=== PATIENT | female | born 1955 | race Hispanic/Latino ===

== ENCOUNTER 2024-11-19 14:59 | Outpatient (CLI) | payer OTHER, SELFPAY ==
--- NOTE | ~2024-11-19 | MM_ITS ---
EXAMINATION: MM screening elvira BI w gerry HISTORY: Screening TECHNIQUE: Craniocaudal and mediolateral oblique 3-D tomosynthesis images were obtained and synthetic 2-D images were generated. CAD analysis was submitted and interpreted. COMPARISON: No prior mammogram is available for comparison at this institution. BREAST PARENCHYMAL COMPOSITION: There are scattered areas of fibroglandular density. FINDINGS: There is no evidence of suspicious mass, calcification, or architectural distortion to suggest malignancy. There has been no suspicious interval change. IMPRESSION: 1. No mammographic evidence of malignancy. Recommend routine screening mammography in one year. BI-RADS Category 2: Benign finding(s) Reviewed, dictated and finalized at location [facility]. IMPRESSION: 1. No mammographic evidence of malignancy. Recommend routine screening mammogra phy in one year. BI-RADS Category 2: Benign finding(s)
== END 2024-11-19 15:00 | disposition home or self-care (01) ==
PROVIDERS: PCP Physician Assistant; Visit Provider Physician Assistant
DX: Z12.31 Encounter for screening mammogram for malignant neoplasm of breast (principal)
CPT/HCPCS: 77063; 77067

== ENCOUNTER 2024-12-17 08:41 | Outpatient (CLI) | payer OTHER, SELFPAY ==
--- NOTE | 2025-01-12 11:49 | P.SLEEP_ITS ---
Sleep Study Date of Study: 12/17/24 Ordering Provider: Aspen Boone, MEGAN Interpreting Physician: Shona Moarles MD Sleep Study Type: Split Polysomnogram Height: 1.57 m Weight: 80.739 kg Body Mass Index: 32.5 Neck Circumference (inches): 15 [place]: 20 Reason for Sleep Study Hypersomnolence, history of sleep terrors Sleep History Sasha Dash is a 69-year-old woman with excessive daytime sleepiness. She started sleep talking in her own dialect from the [facility] about 8 years ago. Her late used to wake her up at night. She had a history of punching him without knowing it. Most of her dreams are related to things that she normally does or experiences from the past. She has loud snoring that disrupts her sleep. She has had dreams about falling out of the bed and this has actually happened to her. She is currently taking prazosin which is not helping. She frequently awakens from sleep short of breath. She frequently wakes at night with heartburn, belching or coughing.??She constantly snores, always loudly enough that others complain. She frequently has trouble sleeping when she has a cold. She frequently wakes up gasping for breath during the night. She constantly has breathing problems at night reported to her by others. She occasionally sweats excessively at night. She frequently notices her heart pounding or beating irregularly during the night. She constantly falls asleep during the day constantly falls asleep involuntarily, but indicates that it is not applicable as far as falling asleep while driving. I interpret that to mean that she does not drive. She never experiences loss of muscle tone with strong emotion. She rarely feels paralyzed on waking or falling asleep. She constantly experiences vivid dreams upon waking or falling asleep. She never feels afraid of going to sleep. She constantly has nightmares. She occasionally recalls her dreams. She rarely has thoughts racing through her mind. She occasionally feels sad or depressed. She occasionally feels anxiety. She occasionally notices parts of her body jerk. She frequently kicks during the night. She occasionally feels crawling or aching feelings in her legs. She rarely has morning jaw pain, and never grinds her teeth at night. She rarely rarely feels bothered by pain during the day, is rarely awakened by pain during the night. Normal bedtime is 10:00 p.m., falling asleep immediately, waking a few times during the night, thinks about her dreams or problems, returns to sleep within 10-15 minutes, wakes at 6:00 a.m. using an alarm. On weekends, schedule is similar, bedtime is 10:00 p.m., wake time is around 7:00 a.m without an alarm. She takes naps in the afternoon or evening. A short nap lasting 10-15 minutes may be refreshing. She is usually drowsy for 2 hours after waking. She feels better in the morning or afternoon compared to the evening. Habits:??Tobacco: none reported Caffeine: 1 cup per day Alcohol: none Recreational substances: none PMFSH Past Medical History Medical History (Updated 01/20/25 @ 15:53 by Shona Morales MD) Hyperlipidemia Essential hypertension Diabetes mellitus type 2, controlled, without complications Medications Medications: Losartan 100 mg a day Metformin 500 mg b.i.d. Oxybutynin chloride ER 5 mg daily Prazosin 2 mg HS Rosuvastatin 20 mg daily Sleep Procedure A split night polysomnogram using the [employer] multi-channel system recorded the standard physiologic parameters including EEG, EOG, submentalis EMG, anterior tibialis EMG, EKG, body position, nasal and oral airflow using nasal pressure sensor and thermistor. Respiratory parameters of chest and abdominal movements were recorded with Respiratory Inductance Plethysmography belts. Oxygen saturation was recorded by pulse oximetry. Video monitoring was also performed. Sleep stages, periodic limb movements, and EEG arousals were scored in 30 second epochs according to the criteria of the AASM Scoring Manual. The Apnea-Hypopnea Index was calculated using CMS guidelines for definition of hypopnea while scoring respiratory events. After the baseline portion the patient met criteria for a titration with an AHI of 88.5 and desaturation to 75%. Patient used a ResMed SW AirFit N 30 I nasal mask, initial pressure was CPAP 5 cm titrated to 7 cm, 9 cm, 11 cm, final pressure was 13 cm. At CPAP 11, patient spent 152.5 minutes in bed, 2 minutes awake, 105.5 minutes in non-REM, 45 minutes in REM. Sleep efficiency was 98.7%. The residual apnea-hypopnea index was 3.2. The minimum saturation was 89%. REM occurred in the supine position. Sleep Architecture The total recording time of the diagnostic portion of the study was 151.5 minutes. The total sleep time was 133.5 minutes. During the diagnostic portion of the study, the patient spent 3.4% of total sleep time in Stage N1, 55.4% in Stage N2, 40.1% in Stages N3, and 1.1% in REM. Sleep latency was 7.0 minutes. REM latency was 71.5 minutes. Sleep Efficiency was 88.1%. Wake after Sleep Onset time was 11.0 minutes. At 12:42:17 AM the patient was placed on PAP treatment. The total recording time of the treatment portion of the study was 319.2 minutes. The total sleep time was 259.5 minutes. During the treatment portion of the study, the patient spent 2.5% of total sleep time in Stage N1, 54.7% in Stage N2, 8.7% in Stages N3, and 34.1% in REM. Sleep latency was 3.5 minutes. REM latency was 58.5 minutes. Sleep Efficiency was 81.3%. Wake after Sleep Onset time was 56.0 minutes. Respiratory Analysis During the diagnostic portion of the study, the polysomnogram revealed a presence of 13 obstructive, no central or mixed apneas, and 1 84 hypopneas for a total of 197 events, all in the supine position, the apnea-hypopnea index was 88.5. There were no respiratory effort related arousals. The respiratory disturbance index is 92.6 events per hour. The REM apnea-hypopnea index is 40. There was no evidence of Ivan-Womack Respirations. There were 193 hypopneas (3% desat and/or Ar.) resulting in an Apnea-Hypopnea Index (AHI 3% desat and/or Ar.) of 92.6 events per hour. There were 184 hypopneas (4% desat) resulting in an Apnea-Hypopnea Index (AHI 4% desat) of 88.5 events per hour. During the treatment portion of the study, the polysomnogram revealed a presence of 1 obstructive, 2 central, no mixed apneas resulting in an Apnea index of 0.7 events per hour. There were 35 hypopneas (3% desat and/or Ar.) resulting in an Apnea\Hypopnea Index (AHI 3% desat and/or Ar.) of 8.8 events per hour. There were 18 hypopneas (4% desat) resulting in an Apnea\Hypopnea Index (AHI 4% desat) of 4.9 events per hour. There were no Respiratory Effort Related Arousals. The Respiratory Disturbance Index is 8.8 events per hour. REM AHI was 4.7. There is no evidence of Ivan-Womack respirations Arousals During the diagnostic portion of the study, there was a total of 44 arousals for an index of 19.8. There were 15 respiratory arousals for an index of 6.7. There were 5 periodic limb movement arousals for an index of 2.2. There was 1 isolated limb movement arousal for an index of 0.4 and 24 spontaneous arousals for an index of 10.8. During the treatment portion of the study, there was a total of 52 arousals for an index of 12.0. There were 2 respiratory arousals for an index of 0.5. There were 15 periodic limb movement arousals for an index of 3.5. There were 4 isolated limb movement arousals for an index of 0.9 and 32 spontaneous arousals for an index of 7.4. Periodic Limb Movements During the diagnostic portion of the study, the patient had 12 isolated limb movements with an isolated limb movement index of 5.4. The patient had 167 periodic limb movements with a periodic limb movement index of 75.1. The patient had a total of 179 limb movements with an overall limb movement index of 80.4 During the treatment portion of the study, the patient had 32 isolated limb movements with an isolated limb movement index of 7.4. The patient had 635 periodic limb movements with a periodic limb movement index of 146.8. The patient had a total of 667 with an overall limb movement index of 154.2. Oximetry Data During the diagnostic portion of the study, the patient had an average oxygen saturation of 93% in wake with a minimum oxygen saturation of 85% and a maximum oxygen saturation of 97%. The patient had an average oxygen saturation of 88.5% in sleep with a minimum oxygen saturation of 75% and a maximum oxygen saturation of 96%. The patient had 216 oxygen desaturations resulting in an Oxygen Desaturation Index of 97.1. The patient spent 64.3 minutes, 42.5% of total sleep time with an oxygen saturation less than 88%. During the treatment portion of the study, the patient had an average oxygen saturation of 95.6% in wake with a minimum oxygen saturation of 86% and a maximum oxygen saturation of 98%. The patient had an average oxygen saturation of 90.8% in sleep with a minimum oxygen saturation of 82% and a maximum oxygen saturation of 97%. The patient had 38 oxygen desaturations resulting in an Oxygen Desaturation Index of 8.8. The patient spent 55 minutes, 18% of total sleep time with an oxygen saturation less than 88%. Snoring Profile During diagnostic portion, snoring was mild and intermittent. During treatment portion, snoring was eliminated. Cardiac Profile During the diagnostic portion of the study, the EKG showed normal sinus rhythm. The average pulse rate was 65.4 bpm. The minimum pulse rate was 59 bpm while the maximum pulse rate was 86 bpm. No arrhythmias noted. During the treatment portion of the study, the EKG showed normal sinus rhythm. The average pulse rate was 59.6 bpm. The minimum pulse rate was 50 bpm while the maximum pulse rate was 80 bpm. No arrhythmias noted. EEG Profile Unremarkable, no evidence of seizures. Assessment and Plan Assessment and Plan (1) Obstructive sleep apnea: Code(s): G47.33 - Obstructive sleep apnea (adult) (pediatric) Status: Acute Assessment and Plan: This split night sleep study on 12/17/2024 shows severe obstructive sleep apnea, the apnea-hypopnea index is 88.5, desaturation to 75% with mild snoring treated using a ResMed SW AirFit N 30 I nasal mask with an optimal pressure of CPAP 11 cm. At CPAP 11, patient spent 152.5 minutes in bed, 2 minutes awake, 105.5 minutes in non-REM, 45 minutes in REM. Sleep efficiency was 98.7%. The residual apnea-hypopnea index was 3.2. The minimum saturation was 89%. REM occurred in the supine position. The patient should be prescribed this ResMed equipment as well as tubing, filters and reservoir. This should be used with all episodes of sleep. Compliance should be reviewed within 31-90 days of starting therapy for usage greater than 4 hours per night greater than 70% of the nights. The patient should be asked about symptoms such as excessive daytime sleepiness, quality of sleep, decreased nocturia, increased mental functioning such as memory, mood, and concentration. BMI is 32. Weight management is advised. Clinical data suggests that weight loss of 10% can reduce the severity of respiratory events and snoring and improve AHI by as much as 25%. She has a history of night terrors. On this split night study, no evidence was seen to suggest night terror. She did not have increased in heart rate, did not have screening or sudden change in behavior in her sleep. Night terrors are usually seen in children and can be triggered by fever, infection or stress. She does not have polysomnographic findings consistent with REM without atonia. Treating her severe obstructive sleep apnea is expected to decrease her night asher. (2) Restless legs syndrome (RLS): Code(s): G25.81 - Restless legs syndrome Status: Acute Assessment and Plan: She had an increased number of limb movements during the study, periodic limb movement index was 79.1 on baseline, 146.8 during the titration. These did not cause significant arousals, limb movement arousal index on baseline was 2.2, dur ing treatment was 3.5. Her symptoms are most consistent with restless legs syndrome.Ferritin level is indicated to exclude iron deficiency anemia as a contributing factor. Ferritin should be 75 ng/mL or greater. If ferritin is below this, iron supplementation should be given to achieve ferritin of 75 ng/mL. There are nonpharmacologic methods to treat limb movements including daily exercise, stretching calf muscles before bed, avoiding excessive amounts of caffeine and alcohol, vitamin B supplementation, magnesium lotion massaged into legs before bed, and use of a weighted blanket. Pharmacologic therapy is very effective for restless legs syndrome and limb movements during sleep and may include [id number] voltage-gated calcium channel ligands such as gabapentin which is preferable to dopaminergic agents which can have augmentation. Data The data obtained during this sleep study is adequate for interpretation. Certification This sleep study has been reviewed by a board certified sleep medicine physic
[2025-01-20 15:54] VITALS: BMI 32.5
== END 2024-12-18 06:32 | disposition home or self-care (01) ==
PROVIDERS: PCP Physician Assistant; Visit Provider Physician Assistant
DX: G47.10 Hypersomnia, unspecified (principal); G47.33 Obstructive sleep apnea (adult) (pediatric); G25.81 Restless legs syndrome
CPT/HCPCS: 95811